=== PATIENT | male | born 1985 | race Hispanic/Latino ===

== ENCOUNTER 2021-07-08 12:28 | Emergency (ER) | payer SELFPAY ==
[2021-07-08] MEDS ORDERED: Cyclobenzaprine 10 MG TAB ONE (13:05)
[2021-07-08] MEDS ORDERED: Ketorolac Tromethamine 60 MG/2 ML VIAL ONE (13:05)
== END 2021-07-08 13:55 | disposition home or self-care (01) ==
LOC: NAV ERS 12:28
DX: S33.5XXA Sprain of ligaments of lumbar spine, initial encounter (principal); M62.830 Muscle spasm of back; G40.909 Epilepsy, unspecified, not intractable, without status epilepticus; Z79.899 Other long term (current) drug therapy; X50.0XXA Overexertion from strenuous movement or load, initial encounter
CPT/HCPCS: 96372; 99283; J1885

== ENCOUNTER 2022-12-17 19:23 | Emergency (ER) | payer SELFPAY ==
[2022-12-17 19:48] LABS: #Basophils 0.1 thou/uL (0.0-0.2); #Lymphocytes 0.7 thou/uL (1.20-3.40); #Monocytes 0.5 thou/uL (0.11-0.59); #Neutrophils 4.5 thou/uL (1.40-6.50); %Basophils 1.1 % (0.0-1.0); %Eosinophils 0.5 % (0.0-10.0); %Lymphocytes 11.8 % (21.0-51.0); %Neutrophils 78.6 % (42.0-75.0); Hemoglobin 12.6 g/dL (14.0-18.0); Mean Corpuscular HGB CONC 32.6 g/dL (32.0-36.0); Mean Corpuscular Hemoglobin 33.7 pg (27.0-31.0); Mean Platelet Volume 7.1 fL (7.4-10.4); Platelet Count 206 10x3/uL (130-400); RBC Distribution Width 11.8 % (11.5-14.5); Red Blood Cell (RBC) Count 3.75 mill/uL (4.70-6.10); White Blood Cell (WBC) Count 5.7 10x3/uL (4.8-10.8)
[2022-12-17 20:07] LABS: Acetaminophen Less than 10.0 mcg/mL (10.0-30.0); Alcohol Less than 10 mg/dL (Less than 10); Anion Gap 18 mmol/L (10-20); BUN (Urea Nitrogen) 11 mg/dL (8.9-20.6); CK (CPK) 311 U/L (30-200); Calc. Creatinine Clearance 0 mL/min (70-130); Calcium 9.4 mg/dL (7.8-10.44); Carbon Dioxide 20 mmol/L (22-29); Chloride 105 mmol/L (98-107); Estimated GFR 94; Glucose 77 mg/dL (70-105); Potassium 3.9 mmol/L (3.5-5.1); Salicylate Less than 8.0 mg/dL (15.0-30.0); Sodium 139 mmol/L (136-145)
[2022-12-17 20:08] LABS: Lipase 21 U/L (8-78); Magnesium 1.3 mg/dL (1.6-2.6)
[2022-12-17] MEDS ORDERED: Magnesium 2 GM/50 ML BAG (IN WATER) ONE (20:14)
[2022-12-17] MEDS ORDERED: levETIRAcetam 500 MG/100 ML PREMIX BAG ONE (20:15)
[2022-12-17] MEDS ORDERED: levETIRAcetam 500 MG/5 ML VIAL ONE ×2 (20:16→20:20)
[2022-12-17] MEDS ORDERED: Sodium Chloride 0.9% 0 ML ONE (20:16)
[2022-12-17] MEDS ORDERED: Sodium Chloride 0.9% 500 ML ONE (20:42)
[2022-12-17 20:53] LABS: Bacteria/HPF None Seen HPF (None Seen); Bilirubin Negative (Negative); Blood, Urine Trace (Negative); Clarity Clear (Clear); Glucose, Urine (Dipstick) Negative (Negative); Ketone, Urine Negative (Negative); Leukocyte Negative (Negative); Mucous/LPF 2+ LPF (<2+); Nitrite Negative (Negative); Protein, Urine (Dipstick) 30 mg/dL (Neg-Trace); Specific Gravity, Urine 1.025 (1.005-1.030); Squamous Epithelial None Seen HPF (0-3); Urobilinogen 0.2 mg/dL (Less than 2)
[2022-12-17] MEDS ORDERED: Ibuprofen 800 MG TAB ONE (21:05)
[2022-12-17 21:06] LABS: Amphetamine Not Detected (NotDetected); Barbiturates Screen Not Detected (NotDetected); Benzodiazepine Screen Not Detected (NotDetected); Cocaine Metabolite Screen Not Detected (NotDetected); Medtox Control Line Valid? VALID (VALID); Methadone Not Detected (NotDetected); Methamphetamine Not Detected (NotDetected); Opiate Screen Not Detected (NotDetected); Oxycodone Screen Not Detected (NotDetected); Phencyclidine (PCP) Not Detected (NotDetected); THC/Cannabinoid Screen Not Detected (NotDetected); Tricyclic Screen Not Detected (NotDetected)
[2022-12-18 20:43] LABS: Chlam.trachomatis by PCR,Urine Not Detected (NotDetected)
== END 2022-12-17 21:49 | disposition home or self-care (01) ==
LOC: NAV ERS 19:23
DX: G40.909 Epilepsy, unspecified, not intractable, without status epilepticus (principal); E83.42 Hypomagnesemia; R82.81 Pyuria; Z79.899 Other long term (current) drug therapy
CPT/HCPCS: 80048; 80306; 80307; 81003; 81015; 82550; 83690; 83735; 85025; 87086; 87491; 87591; 96374; 96375; J1953; J3475; J7030

== ENCOUNTER 2024-03-30 21:31 | Emergency (ER) | payer SELFPAY ==
[2024-03-30] MEDS ORDERED: levETIRAcetam 500 MG TAB ONE (22:07)
[2024-03-30 22:10] LABS: #Basophils 0.1 thou/uL (0.0-0.2); #Lymphocytes 1.2 thou/uL (1.20-3.40); #Monocytes 0.5 thou/uL (0.11-0.59); %Basophils 1.6 % (0.0-1.0); %Eosinophils 0.6 % (0.0-10.0); %Lymphocytes 20.1 % (21.0-51.0); %Neutrophils 68.7 % (42.0-75.0); Hematocrit 39.4 % (42.0-52.0); Hemoglobin 12.3 g/dL (14.0-18.0); Mean Corpuscular HGB CONC 31.1 g/dL (32.0-36.0); Mean Corpuscular Hemoglobin 31.2 pg (27.0-31.0); Mean Platelet Volume 8.1 fL (7.4-10.4); Platelet Count 246 10x3/uL (130-400); RBC Distribution Width 11.5 % (11.5-14.5); Red Blood Cell (RBC) Count 3.93 mill/uL (4.70-6.10); White Blood Cell (WBC) Count 5.8 10x3/uL (4.8-10.8)
[2024-03-30 22:25] LABS: ALT (SGPT) 25 U/L (8-55); AST (SGOT) 39 U/L (5-34); Albumin 4.4 g/dL (3.5-5.0); Alkaline Phosphatase 43 U/L (40-110); Anion Gap 19 mmol/L (10-20); BUN (Urea Nitrogen) 14 mg/dL (8.9-20.6); Bilirubin, Total 0.9 mg/dL (0.2-1.2); Calc. Creatinine Clearance 0 mL/min (70-130); Calcium 9.5 mg/dL (7.8-10.44); Carbon Dioxide 20 mmol/L (22-29); Chloride 105 mmol/L (98-107); Estimated GFR 71; Globulin 3.4 g/dL (2.4-3.5); Glucose 80 mg/dL (70-105); Potassium 4.9 mmol/L (3.5-5.1); Protein, Total 7.8 g/dL (6.0-8.3); Sodium 139 mmol/L (136-145)
== END 2024-03-31 00:25 | disposition home or self-care (01) ==
LOC: NAV ERS 21:31
DX: G40.309 Generalized idiopathic epilepsy and epileptic syndromes, not intractable, without status epilepticus (principal); Z79.899 Other long term (current) drug therapy
CPT/HCPCS: 36416; 80053; 85025; 99284

== ENCOUNTER 2024-04-20 17:25 | Emergency (ER) | payer OTHER ==
[2024-04-20] MEDS ORDERED: Ondansetron PF 4 MG/2 ML Vial ONE (18:01)
[2024-04-20 18:08] LABS: #Basophils 0.1 thou/uL (0.0-0.2); #Lymphocytes 0.8 thou/uL (1.20-3.40); #Monocytes 0.5 thou/uL (0.11-0.59); #Neutrophils 3.3 thou/uL (1.40-6.50); %Basophils 1.1 % (0.0-1.0); %Eosinophils 0.9 % (0.0-10.0); %Lymphocytes 16.7 % (21.0-51.0); %Monocytes 9.7 % (0.0-10.0); %Neutrophils 71.6 % (42.0-75.0); Hematocrit 38.5 % (42.0-52.0); Hemoglobin 12.1 g/dL (14.0-18.0); Mean Corpuscular HGB CONC 31.3 g/dL (32.0-36.0); Mean Platelet Volume 6.1 fL (7.4-10.4); Platelet Count 217 10x3/uL (130-400); RBC Distribution Width 11.7 % (11.5-14.5); Red Blood Cell (RBC) Count 3.89 mill/uL (4.70-6.10); White Blood Cell (WBC) Count 4.6 10x3/uL (4.8-10.8)
[2024-04-20 18:22] LABS: ALT (SGPT) 19 U/L (8-55); AST (SGOT) 26 U/L (5-34); Albumin 4.1 g/dL (3.5-5.0); Alkaline Phosphatase 49 U/L (40-110); Anion Gap 14 mmol/L (10-20); BUN (Urea Nitrogen) 12 mg/dL (8.9-20.6); Bilirubin, Total 0.6 mg/dL (0.2-1.2); Calc. Creatinine Clearance 0 mL/min (70-130); Calcium 9.7 mg/dL (7.8-10.44); Carbon Dioxide 25 mmol/L (22-29); Chloride 105 mmol/L (98-107); Estimated GFR 85; Globulin 3.1 g/dL (2.4-3.5); Glucose 91 mg/dL (70-105); Potassium 4.5 mmol/L (3.5-5.1); Protein, Total 7.2 g/dL (6.0-8.3); Sodium 139 mmol/L (136-145)
[2024-04-20] MEDS ORDERED: Acetaminophen 325 MG TAB ONE (18:51)
[2024-04-20] MEDS ORDERED: lamoTRIgine 100 MG TAB ONE (18:52)
[2024-04-20] MEDS ORDERED: levETIRAcetam 500 MG TAB ONE (18:52)
== END 2024-04-20 19:43 | disposition home or self-care (01) ==
LOC: NAV ERS 17:25
DX: G40.309 Generalized idiopathic epilepsy and epileptic syndromes, not intractable, without status epilepticus (principal); Z79.899 Other long term (current) drug therapy
CPT/HCPCS: 36415; 80053; 84146; 85025; 96374; J2405

== ENCOUNTER 2024-10-13 15:17 | Emergency (ER) | payer OTHER ==
[2024-10-13] MEDS ORDERED: Thiamine HCl 200 MG/2 ML VIAL ONE (16:36)
[2024-10-13] MEDS ORDERED: Sodium Chloride 0.9% 1,000 ML ONE (16:36)
[2024-10-13] MEDS ORDERED: Diazepam 10 MG/2 ML SYRINGE ONE (16:36)
[2024-10-14] MEDS ORDERED: Boostrix 0.5 ML (Tdap) VIAL (>/=7 yrs of age) ONE (23:21)
[2024-10-15 08:40] LABS: %Lymphocytes 10.7 % (21.0-51.0); %Neutrophils 77.8 % (42.0-75.0); Hematocrit 41.3 % (42.0-52.0); Hemoglobin 13.6 g/dL (14.0-18.0); Manual Diff?? NO; Mean Corpuscular HGB CONC 32.9 g/dL (32.0-36.0); Mean Corpuscular Hemoglobin 32.6 pg (27.0-31.0); Mean Platelet Volume 6.6 fL (7.4-10.4); Platelet Count 235 10x3/uL (130-400); RBC Distribution Width 11.3 % (11.5-14.5); Red Blood Cell (RBC) Count 4.17 mill/uL (4.70-6.10); White Blood Cell (WBC) Count 5.8 10x3/uL (4.8-10.8)
[2024-10-15 08:41] LABS: #Basophils 0.1 thou/uL (0.0-0.2); #Lymphocytes 0.6 thou/uL (1.20-3.40); #Monocytes 0.6 thou/uL (0.11-0.59); #Neutrophils 4.5 thou/uL (1.40-6.50); %Basophils 1.2 % (0.0-1.0); %Eosinophils 0.6 % (0.0-10.0); %Monocytes 9.8 % (0.0-10.0); Anion Gap 14 mmol/L (10-20); BUN (Urea Nitrogen) 12 mg/dL (8.9-20.6); Calc. Creatinine Clearance 0 mL/min (70-130); Carbon Dioxide 25 mmol/L (22-29); Chloride 103 mmol/L (98-107); Estimated GFR 92; Potassium 4.7 mmol/L (3.5-5.1); Sodium 137 mmol/L (136-145)
[2024-10-15 08:42] LABS: ALT (SGPT) 30 U/L (8-55); AST (SGOT) 42 U/L (5-34); Acetaminophen Less than 10 mcg/mL (Less than 10); Albumin 4.1 g/dL (3.5-5.0); Alcohol Less than 10.0 mg/dL (Less than 10); Alkaline Phosphatase 58 U/L (40-110); Calcium 9.4 mg/dL (7.6-10.4); Globulin 3.5 g/dL (2.4-3.5); Glucose 83 mg/dL (70-105); Protein, Total 7.6 g/dL (6.0-8.3); Salicylate Less than 8.0 mg/dL (Less than 8.0)
== END 2024-10-13 20:40 | disposition short-term general hospital (02) ==
LOC: NAV ERS 15:17
DX: F10.139 Alcohol abuse with withdrawal, unspecified (principal); H55.00 Unspecified nystagmus
CPT/HCPCS: 70450; 80053; 80307; 85025; 96374; 96375; J3360; J3411; J7030

== ENCOUNTER 2025-09-25 18:52 | Emergency (ER) | payer OTHER ==
[2025-09-25] MEDS ORDERED: Ondansetron PF 4 MG/2 ML Vial ONE (19:26)
[2025-09-25 19:54] LABS: ALT (SGPT) 23 U/L (Less than 45); AST (SGOT) 38 U/L (11-34); Albumin 3.6 g/dL (3.1-4.5); Alkaline Phosphatase 52 U/L (40-110); Anion Gap 15 mmol/L (10-20); BUN (Urea Nitrogen) 9 mg/dL (8.9-20.6); Bilirubin, Total 0.6 mg/dL (0.3-1.2); Calc. Creatinine Clearance 0 mL/min (70-130); Calcium 7.4 mg/dL (7.8-10.44); Carbon Dioxide 20 mmol/L (22-29); Chloride 110 mmol/L (98-107); Globulin 2.6 g/dL (2.4-3.5); Glucose 103 mg/dL (70-105); Lipase 24 U/L (8-78); Potassium 3.3 mmol/L (3.5-5.1); Sodium 142 mmol/L (136-145)
[2025-09-25 20:00] LABS: #Basophils 0.1 thou/uL (0.0-0.2); #Eosinophils 0.0 thou/uL (0.0-0.7); #Lymphocytes 0.5 thou/uL (1.20-3.40); #Monocytes 0.4 thou/uL (0.11-0.59); #Neutrophils 4.0 thou/uL (1.40-6.50); %Basophils 1.1 % (0.0-1.0); %Eosinophils 0.8 % (0.0-10.0); %Lymphocytes 10.2 % (21.0-51.0); %Monocytes 8.0 % (0.0-10.0); %Neutrophils 79.9 % (42.0-75.0); Hematocrit 37.2 % (42.0-52.0); Hemoglobin 12.7 g/dL (14.0-18.0); Mean Corpuscular Hemoglobin 33.2 pg (27.0-31.0); Mean Corpuscular Volume 97.8 fl (78.0-98.0); Platelet Count 193 10x3/uL (130-400); Red Blood Cell (RBC) Count 3.81 mill/uL (4.70-6.10); White Blood Cell (WBC) Count 5.0 10x3/uL (4.8-10.8)
== END 2025-09-25 20:55 | disposition home or self-care (01) ==
LOC: NAV ERS 18:52
DX: R11.0 Nausea (principal); G40.909 Epilepsy, unspecified, not intractable, without status epilepticus; F17.290 Nicotine dependence, other tobacco product, uncomplicated; Z79.899 Other long term (current) drug therapy
CPT/HCPCS: 80053; 83690; 85025; 93005; 96374; J2405; J7030